=== PATIENT | female | born 1985 | race Two or more races ===

== ENCOUNTER → 2022-02-05 14:47 | Outpatient (CLI) | payer OTHER, SELFPAY ==
--- NOTE | 2022-02-05 14:51 | MM_ITS ---
PROCEDURE INFORMATION: Exam: Bilateral Diagnostic Breast Tomosynthesis Exam date and time: 02/05/2022 2:46 PM Age: 36 years old Clinical indication: Bilateral breast palpable lumps TECHNIQUE: Imaging protocol: Bilateral Diagnostic tomosynthesis and 2D mammography including computer-aided detection (CAD) when performed. Unilateral or bilateral exam. COMPARISON: No relevant prior studies available. FINDINGS: MAMMOGRAPHY: The breasts are heterogeneously dense, which may obscure small masses. There is no stellate mass, architectural distortion or suspicious microcalcifications in either breast to suggest malignancy. Additional spot compression views of both upper inner quadrants where the patient reports bilateral palpable abnormalities do not demonstrate any suspicious findings. No skin thickening or axillary adenopathy. IMPRESSION: Patient to return for bilateral breast ultrasound for full evaluation of the patient's complaint of bilateral palpable abnormalities. ASSESSMENT: BI-RADS Category 0: Incomplete- Need Additional Imaging Evaluation and/or Prior Mammograms for Comparison
== END ==
PROVIDERS: PCP Nurse Practitioner Family; Visit Provider Nurse Practitioner Family
DX: N63.20 Unspecified lump in the left breast, unspecified quadrant (principal); N63.10 Unspecified lump in the right breast, unspecified quadrant
CPT/HCPCS: 77062; 77066; G0279

== ENCOUNTER → 2022-02-17 10:37 | Outpatient (CLI) | payer OTHER, SELFPAY ==
--- NOTE | 2022-02-17 10:42 | US_ITS ---
PROCEDURE INFORMATION: Exam: US Right Breast, Complete Exam date and time: 02/17/2022 10:54 AM Age: 36 years old Clinical indication: Bilateral palpable breast lump. Diagnostic mammogram from 02/05/2022 demonstrated no mammographic abnormalities. Targeted ultrasound in the regions of palpable concern was recommended to complete the palpable lump workup in a woman over 30 years of age TECHNIQUE: Imaging protocol: Complete ultrasound of all four quadrants of the Right breast and the retroareolar regions, including ultrasound of the axilla when performed. COMPARISON: BR US BREAST-RT COMPLETE W/AXILLA 05/15/2016 1:47 PM FINDINGS: Breast: Sonographic assessment of the entire bilateral breasts including 4 quadrants, retroareolar breast, and axilla Right: Specifically, no abnormality was detected in the 3 o'clock right breast region of palpable concern as directed by the patient. No suspicious solid or cystic mass is present. No benign-appearing solid or cystic mass is present. No architectural distortion or shadowing is present. No axillary adenopathy is present. IMPRESSION: No sonographic evidence of malignancy. Annual mammographic screening is recommended beginning at age 40 unless otherwise clinically indicated. The decision to biopsy or perform MRI should be made on clinical grounds since a percentage of breast cancers are not detectable via ultrasound or mammography. Close clinical followup is recommended. ASSESSMENT: BI-RADS category 1: Negative
--- NOTE | 2022-02-17 10:42 | US_ITS ---
PROCEDURE INFORMATION: Exam: US Left Breast, Complete Exam date and time: 02/17/2022 11:01 AM Age: 36 years old Clinical indication: Bilateral palpable breast lump. Diagnostic mammogram from 02/05/2022 demonstrated no mammographic abnormalities. Targeted ultrasound in the regions of palpable concern was recommended to complete the palpable lump workup in a woman over 30 years of age TECHNIQUE: Imaging protocol: Complete ultrasound of all four quadrants of the Left breast and the retroareolar regions, including ultrasound of the axilla when performed. COMPARISON: MG MM DIG MAMM BI DX W/CAD 02/05/2022 2:46 PM FINDINGS: Breast: Sonographic assessment of the entire bilateral breasts including 4 quadrants, retroareolar breast, and axilla Left: Specifically, no abnormality was detected along the 9 o'clock axis region of palpable concern No suspicious solid or cystic mass is present. No benign-appearing solid or cystic mass is present. No architectural distortion or shadowing is present. No axillary adenopathy is present. IMPRESSION: No sonographic evidence of malignancy. Annual mammographic screening is recommended beginning at age 40 unless otherwise clinically indicated. The decision to biopsy or perform MRI should be made on clinical grounds since a percentage of breast cancers are not detectable via ultrasound or mammography. Close clinical followup is recommended. ASSESSMENT: BI-RADS category 1: Negative
== END ==
PROVIDERS: PCP Nurse Practitioner Family; Visit Provider Nurse Practitioner Family
DX: N63.10 Unspecified lump in the right breast, unspecified quadrant (principal); N63.20 Unspecified lump in the left breast, unspecified quadrant
CPT/HCPCS: 76641

== ENCOUNTER → 2023-04-16 14:50 | Outpatient (CLI) | payer SELFPAY ==
--- NOTE | 2023-04-16 15:03 | US_ITS ---
PROCEDURE: US TRANSVAGINAL CLINICAL INDICATION: ABD PAIN COMPARISON: No exams were available for comparison FINDINGS: Transvaginal sonographic images of the pelvis were obtained. UTERUS: 8.3 cm x 5.0 cmx 4.5 cm with a combined endometrial thickness of 9.8mm. LEFT OVARY: 2.4 cmx1.3 cmx1 point 6 cm with a volume of 1.4ml.There are several small follicles. RIGHT OVARY: 2.5 cmx [id number] with a volume of 2.6ml. There are several small follicles. Both ovaries are seen and appear normal. Doppler flow to both ovaries are seen. There is no fluid in the cul-de-sac. IMPRESSION: 1. Anteverted uterus normal in shape and size. 2. The endometrium is normal. 3. Both ovaries are seen and appear normal. Both have several follicles. 4. No fluid in the cul-de-sac. Dictated by: Torito Barnes MD 04/18/2023 18:34 Torito Barnes MD in [facility] 04/18/2023 18:34
== END ==
LOC: RAD 14:54
PROVIDERS: PCP Nurse Practitioner Family; Visit Provider Nurse Practitioner Family
DX: R10.9 Unspecified abdominal pain (principal)
CPT/HCPCS: 76830